=== PATIENT | male | born 1980 | race Caucasian/White ===

== ENCOUNTER 2016-12-22 16:45 | Emergency (ER) | payer OTHER ==
[2016-12-22] MEDS ORDERED: KETOROLAC TROMETHAMINE 30 MG/ML VIAL IM ONE (17:57)
[2016-12-22] MEDS ORDERED: MORPHINE SULFATE 4 MG/ML SYRG IM ONE (17:57)
[2016-12-22] MEDS ORDERED: KETOROLAC TROMETHAMINE 30 MG/ML VIAL ONE (18:01)
[2016-12-22] MEDS ORDERED: MORPHINE SULFATE 4 MG/ML SYRG ONE (18:01)
--- OUTSIDE RECORDS SUMMARY | 2016-12-22 18:28 | XMS REPORT | Continuity of Care Document ---
:1980 Author Organization [employer] [place] [address] Care Team Providers Name Role Phone Unavailable Primary Care Provider Unavailable Source Comments This disclosure is being made pursuant to the [employer] program and maynot contain all information available regarding this patient.[employer] Active Allergies and Adverse Reactions Not on File Current Medications Be aware that medications may not be up to date as of this document. Alwaysverify current medications with the patient. Not on file Active Problems Not on file Social History Tobacco Use Types Packs/Day Years Used Date Never Assessed Plan of Care Health Maintenance Due Date Last Done Comments Retired-Pertussis Vaccine Adult 1999 Retired-Tetanus Vaccine Adult 1999 Retired-INFLUENZA VACCINE 07/11/2015 Results from Last 3 Months Not on file
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
[2016-12-22 21:31] VITALS: BP 135/81
== END 2016-12-22 18:30 | disposition home or self-care (01) ==
LOC: ER 16:45
DX: S82.491A Other fracture of shaft of right fibula, initial encounter for closed fracture (principal); X50.1XXA Overexertion from prolonged static or awkward postures, initial encounter

== ENCOUNTER 2017-06-19 12:00 | Emergency (ER) | payer SELFPAY ==
--- OUTSIDE RECORDS SUMMARY | 2017-06-19 12:24 | XMS REPORT | Clinical Summary ---
:1980 Author Organization [employer] [place] [address] Care Team Providers Name Role Phone Unavailable Primary Care Provider Unavailable Source Comments This disclosure is being made pursuant to the [employer] program and maynot contain all information available regarding this patient.[facility] Allergies Not on File Current Medications Be aware that medications may not be up to date as of this document. Alwaysverify current medications with the patient. Not on file Active Problems Not on file Social History Tobacco Use Types Packs/Day Years Used Date Never Assessed Sex Assigned at Date Recorded Not on file Last Filed Vital Signs Not on file Plan of Treatment Health Maintenance Due Date Last Done Comments Tetanus/Pertussis (1 - Tdap) 1999 INFLUENZA IMMUNIZATION (Season Ended) 2017 Results Not on filefrom Last 3 Months
[2017-06-19] MEDS ORDERED: KETOROLAC TROMETHAMINE 60 MG/2 ML VIAL IM ONE ×2 (12:25→12:41)
--- NOTE | 2017-06-19 12:30 | ERNOTE ---
Upper Extremity HPI - Narrative Date of Service: 06/19/17 - General Extremities Pain Location: elbow: left Time Seen by Provider: 06/19/17 12:16 Source: patient Exam Limitations: no limitations - Immun/Allergies/Home Medications Immunizations: IMMUNIZATION HX Immunizations Up to Date Yes History of Influenza Vaccine No Hx Pneumococcal Vaccination No Allergies/Adverse Reactions: Allergies Allergy/AdvReac Type Severity Reaction Status Date / Time venom-honey bee Allergy Intermediate Verified 06/19/17 12:16 [bee venom (honey bee)] Home Medications: HOME MEDICATIONS EPINEPHrine [Epipen 2-José Miguel] 0.3 mg IM DAILY PRN #2 pen.injctr 08/19/16 [Last Taken Unknown] Naproxen [Naprosyn] 500 mg PO BID PRN #60 tab 06/19/17 [Last Taken Unknown] Sulfamethoxazole/Trimethoprim [Bactrim Ds] 1 tab PO BID #28 tab 06/19/17 [Last Taken Unknown] oxyCODONE HCL/ACETAMINOPHEN [Percocet 5 MG/325 MG] 1 tab PO Q4H PRN #10 tab 08/26 [Last Taken Unknown] - History of Present Illness Narrative: Pt. comes in with c/o L elbow pain and swelling for three days since hitting his elbow at work on a shelf. Pt. denies any SOB, CP, NVD, fever, recent illness, numbness, tingling, or alleviating factors despite using Naproxen for pain. Pt. states that movement and palpation exacerbates the pain. Review of Systems - Review of Systems Constitutional: Present: no symptoms reported. Absent: recent illness, fever, chills, weakness, fatigue, malaise EYE: Present: no symptoms reported ENT: Present: no symptoms reported Respiratory: Present: no symptoms reported. Absent: shortness of breath, cough , wheezing Cardiology: Present: no symptoms reported. Absent: chest pain, palpitations, edema Musculoskeletal: Present: joint pain - L elbow Skin: Present: no symptoms reported. Absent: rash, change in color Neurological: Present: no symptoms reported. Absent: headache, dizziness/light- headedness, numbness, tingling All Other Systems: All systems neg except as marked - Patient's Past Medical History Patient History - Medical: Chronic Pain Patient History - Cardiac/Respiratory: No pertinent hx Patient History - Cancer: No Hx of Cancer Patient History - Surgical Procedures: Other Patient History - Other: None - Social History Living Situations: home Abuse History: No History of abuse Psych History: Hx of Anxiety Have you smoked in the past 12 months: Yes Alcohol Use: none Drug Use: marijuana, meth - Immunizations Immunizations Up to Date: Yes Hx Pneumococcal Vaccination: No History of Influenza Vaccine: No Physical Exam - Physical Exam General Appearance: Present: wd/wn, alert, no apparent distress Head Exam: Present: normal inspection, no evidence of injury Eye Exam: Normal inspection: bilateral, PERRL: bilateral, EOMI: bilateral Neck: Present: normal inspection Respiratory: Present: no respiratory distress, normal breath sounds, no accessory muscle use, chest nontender, lungs clear Cardiovascular/Chest: Present: regular rate, rhythm, no murmur, normal peripheral pulses Back Exam: Present: normal inspection Extremity Exam: Present: decreased range of motion, joint redness - L elbow, joint swelling - L elbow, other - L elbow swelling Neurological Exam: Present: alert, oriented, normal mood/affect, no motor/ sensory deficits Skin Exam: Present: warm/dry, other - L elbow redness 10cm in diameter. Absent : pallor, skin rash ED Progress - Date and Time Seen: Date and Time: 06/19/17 13:50 attempted to withdraw fluid from bursa to check for infection. Scant amount of clear fluid withdrawn not enough for laboratory evaluation but as fluid was clear feel that this is most likely bursitis with local cellulitis so will start on NSAIDS and abx. - Results and Orders Patient's Lab Results:: I have reviewed the patient's lab results. - Vital Signs Patient's Vital Signs:: I have reviewed the patient's vital signs. Vital Signs: Vital Signs 06/19/17 12:06 Temperature 37.1 C Pulse Rate 123 H Respiratory 14 Rate Blood Pressure 127/88 - X-Ray X-Ray #1 X-Ray: elbow Interpretation: Reviewed by me X-ray Comments: no acute ossious abnormality diffuse soft tissue swelling - Progress/Reassessment Chief Complaint: Upper Extremity Injury/Problem Departure Clinical Impression: Bursitis Qualifiers: Bursitis location: elbow Elbow bursitis location: unspecified Laterality: left Qualified Code(s): M70.32 - Other bursitis of elbow, left elbow Cellulitis Qualifiers: Site of cellulitis: extremity Site of cellulitis of extremity: upper extremity Laterality: left Qualified Code(s): L03.114 - Cellulitis of left upper limb - Departure Disposition: Home self-care Condition: Good Instructions: Elbow Bursitis, [id number], Cellulitis, Adult, [id number] Additional Instructions: Please keep arm elevated and use medications as prescribed and follow up with orthopedic provider in 2-3 days if worsening or not improving Referrals: Giorgi Bob, PAC [[facility]] - Prescriptions: Naproxen [Naprosyn] 500 mg PO BID PRN #60 tab PRN Reason: Pain Sulfamethoxazole/Trimethoprim [Bactrim Ds] 1 tab PO BID #28 tab oxyCODONE HCL/ACETAMINOPHEN [Percocet 5 MG/325 MG] 1 tab PO Q4H PRN #10 tab PRN Reason: Pain
[2017-06-19 12:39] LABS: Hematocrit 42.9 % (42.0-52.0); Hemoglobin 15.9 gm/dL (13.5-18.0); Mean Cell Volume 92.3 fl (78-100); Mean Corpuscular Hemoglobin 34.2 pg (27-31); Mean Corpuscular Hgb Conc 37.1 g/dl (32-36); Mean Platelet Volume 10.4 fl (6.0-9.5); Neutrophil # 12.8 K/mm3 (1.3-6.0); Platelet Count 211 K/mm3 (150-450); Red Blood Count 4.65 M/mm3 (4.7-6.0); Red Cell Distribution Width 12.8 % (11.5-14.0); White Blood Count 17.5 K/mm3 (4.0-10.5)
[2017-06-19 12:51] LABS: Anion Gap 14.1 mmol/L (6.8-13.8); BUN/Creatinine Ratio 17.4 (9.0-21.6); Bilirubin, Total 1.4 mg/dL (0.0-1.1); Ca. Corrected For Albumin 9.3 mg/dL (8.4-10.2); Calcium * 9.6 mg/dL (7.9-10.9); Carbon Dioxide 28.3 mmol/L (24-32.6); Potassium 3.4 mmol/L (3.4-4.6); Total Protein 8.3 gm/dL (6.2-8.2); Uric Acid 5.2 mg/dL (2.6-7.2)
[2017-06-19 13:02] LABS: CRP 17.3 mg/dL (0.0-0.9)
[2017-06-20 16:28] VITALS: BP 117/77
== END 2017-06-19 14:09 | disposition home or self-care (01) ==
LOC: ER 12:00
PROC: 0M943ZX Drainage of Left Elbow Bursa and Ligament, Percutaneous Approach, Diagnostic (ICD-10-PCS; principal; 2017-06-19)
DX: M70.32 Other bursitis of elbow, left elbow (principal); L03.114 Cellulitis of left upper limb; X58.XXXA Exposure to other specified factors, initial encounter; Y93.9 Activity, unspecified; Y92.89 Other specified places as the place of occurrence of the external cause; Y99.0 Civilian activity done for income or pay